=== PATIENT | female | born 2000 | race Two or more races ===

== ENCOUNTER → 2024-08-30 | Outpatient (CLI) | payer BC ==
--- NOTE | 2024-08-30 09:04 | US ---
EXAMINATION TYPE: US gallbladder DATE OF EXAM: 08/30/2024 COMPARISON: NONE CLINICAL INDICATION: Female, 24 years old with history of R10.11 RUQ PAIN R10.13 EPIGAS PAIN; epigast marv pain TECHNIQUE: Grayscale and color Doppler imaging of the right upper quadrant was performed. 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 Liver appears unremarkable without focal lesion. Gallbladder demons trates no stones, wall thickening or surrounding fluid. Negative sonographic Acevedo sign. Common bile duct is within normal limits. Right kidney demonstrates no hydronephrosis, shadowing calculus or william id mass. IMPRESSION: No ultrasound evidence for acute process. [facility], , 08/30/2024 9:01 AM
== END | disposition home or self-care (01) ==
LOC: RADUSWWP 08:18
PROVIDERS: ATTEND Family Medicine
DX: R10.11 Right upper quadrant pain (principal); R10.13 Epigastric pain
CPT/HCPCS: 76705